=== PATIENT | male | born 1960 | race Caucasian/White ===

== ENCOUNTER 2022-12-01 09:51 | Outpatient (RCR) | payer OTHER, SELFPAY | END 2023-01-05 10:37 | disposition home or self-care (01) | PROVIDERS: PCP Family Medicine; Visit Provider Orthopaedic Surgery | DX: M17.12 Unilateral primary osteoarthritis, left knee (principal); Z96.652 Presence of left artificial knee joint; Z51.89 Encounter for other specified aftercare | CPT/HCPCS: 97110; 97161; 97530 ==

== ENCOUNTER 2023-01-17 08:05 | Day surgery (SDC) | payer OTHER, SELFPAY ==
[2023-01-17] VITALS (22 sets, daily range): BP systolic 136–178; BP diastolic 86–118; PULSE 53–81; RESP 14–18; TEMP 35.1–37.1; O2SAT 88–98; BMI 28.8
[2023-01-17] MEDS: CEFAZOLIN 2 GM INJ IVP (08:12)
[2023-01-17] MEDS: OXYCODONE (CR) 10 MG TAB.ER.12H PO (09:00)
[2023-01-17] MEDS: CELECOXIB 200 MG CAPSULE PO (09:00)
[2023-01-17] MEDS: ACETAMINOPHEN 500 MG TABLET 1000 MG PO ×3 (09:00→20:53)
[2023-01-17] MEDS: LACTATED RINGERS 1000 ML 1,000 ML 100 ML IV ×2 (09:05→13:22)
[2023-01-17] MEDS: SODIUM CHLORIDE 0.9 % (FLUSH) 10 ML SYRINGE IVF (09:05)
[2023-01-17] MEDS: fentaNYL 100 MCG/2 ML inj IVP (10:41)
[2023-01-17] MEDS: MIDAZOLAM HCL 1 MG/ML inj IVP (10:41)
--- NOTE | 2023-01-17 10:48 | W.PM.NB ---
Nerve Block Nerve Block Time Seen by Provider: 10:45 Date Seen: 01/17/23 Type of block requested by surgeon for post-operative analgesia: adductor canal Side: left Time out performed: Yes Verification of patient name: Yes Verification of date of : Yes Site marking: site marked Name of person performing procedure: Fredy Continuous monitoring Was continuous monitoring of O2 sat, B/P, youth nutritional monitor, recorded every 15 minutes?: Yes Procedure Checklist: sterile prep, needles and gloves Ultrasound guided. Images saved: Yes Medications given in 5ml increments after negative aspiration: Ropivicaine %: 0.5 mL: 20 Needle gauge: 20 Decadron (mg): 10 Precedex (mcg): 25 Patient tolerated procedure well: Yes Additional comments: Needle noted adjacent to nerve Block Charges Block Charge (with Pro Fee): Femoral Nerve Use of Ultrasound Machine for Block: Yes- US Guidance/pain block
--- NOTE | 2023-01-17 10:48 | W.PM.NB ---
Nerve Block Nerve Block Time Seen by Provider: 10:45 Date Seen: 01/17/23 Type of block requested by surgeon for post-operative analgesia: geniculars Side: left Time out performed: Yes Verification of patient name: Yes Verification of date of : Yes Site marking: site marked Name of person performing procedure: Fredy Continuous monitoring Was continuous monitoring of O2 sat, B/P, cardiac catheterization technologist, recorded every 15 minutes?: Yes Procedure Checklist: sterile prep, needles and gloves Medications given in 5ml increments after negative aspiration: Ropivicaine %: 0.5 mL: 9 Needle gauge: 25 Patient tolerated procedure well: Yes Block Charges Block Charge (with Pro Fee): Genicular Nerve Block Use of Ultrasound Machine for Block: No
--- NOTE | 2023-01-17 10:49 | W.ANESCHARGE ---
Anesthesia Charges Start Date/Time Anesthesia Start Date: 01/17/23 Anesthesia Start Time: 11:02 Stop Date/Time Anesthesia Stop Date: 01/17/23 Anesthesia Stop Time: 13:33
--- NOTE | 2023-01-17 10:52 | SUR.PREOP ---
TIME?OUT:?1041 PT/RN/MDA?VERIFICATION?OF?SURGICAL?SITE,?PROCEDURE,?AND?CONSENT OBTAINED?PRIOR?TO?INVASIVE?PROCEDURE.
[2023-01-17] MEDS: TRANEXAMIC ACID 100 MG/ML INJ 1000 MG IV (11:15)
--- NOTE | 2023-01-17 12:34 | CRLHL7_ITS ---
For Patients: As a result of the Cures Act, medical imaging exams and procedure reports are released immediately into your electronic medical record. You may view this report before your referring provider. If you have questions, please contact your health care provider. Indication: Post op left TKA Technique: Two views left knee Findings/Impression: Hardware from a left total knee arthroplasty is in satisfactory position. Bone alignment is normal. No sign of acute fracture. Postop changes are within normal limits. Dictated by Carlin Galeas MD @ 01/18/2023 12:34:09 PM (Electronically Signed)
--- NOTE | 2023-01-17 12:38 | PM.ORPRC ---
Procedure Note Date of procedure: 01/17/23 Procedure: PREOPERATIVE DIAGNOSIS: Left knee osteoarthritis POSTOPERATIVE DIAGNOSIS: Left knee osteoarthritis NAME OF OPERATION: Left total knee arthroplasty SURGEON: Marcial Lauren MD TRUCK DISPATCHER: Malu Ruiz PA-C ANESTHESIA: Spinal ESTIMATED BLOOD LOSS: 0 mL COMPLICATIONS: None SPECIMENS: None DRAINS: None PREOPERATIVE ANTIBIOTICS: Ancef 2 grams IMPLANTS: 1. J&J Attune # 9 posterior stabilized femur 2. # 9 fixed-bearing tibia 3. # 9 posterior stabilized, 5 mm fixed-bearing polyethylene 4. 41 patella INDICATIONS: The patient is a 62-year-old with a longstanding history of severe, unrelenting left knee pain secondary to end-stage (grade IV) left knee osteoarthritis. Despite appropriate nonoperative management, including activity modification, anti-inflammatories, [id number] pain medication, bracing, physical therapy, and injections they continue to have pain and disability. Operative intervention was offered. The risks, benefits and expected outcomes were discussed in detail. These included but were not limited to: Infection, bleeding, injury to blood vessel or nerve, venous thromboembolism. All questions were answered to their satisfaction. Use of an assistant spa manager was necessary throughout the case for patient positioning and safety, soft tissue retraction, and closure. PROCEDURE: Spinal anesthesia was administered. The patient was placed supine on the operating table. The assistant spa manager made sure the patient was positioned appropriately. The lower extremity was prepped and draped in the usual sterile fashion. The limb was exsanguinated with the Kd bandage. The pneumatic tourniquet was inflated to 300 mmHg. A standard anterior incision was made with the knee in flexion. Subcutaneous dissection was sharply taken through fascial layer #1. Full-thickness medial and lateral flaps were elevated. The assistant spa manager retracted the soft tissues and protected them throughout the case. A standard medial parapatellar approach was made. The patella was everted. The infrapatellar fat pad was preserved. The menisci and cruciate ligaments were sharply d?brided. Marginal osteophytes were d?brided with the rongeur. The drill was used to penetrate the femoral canal. The canal was aspirated and irrigated with pulse lavage. The intramedullary femoral guide was placed for a 5-degree valgus cut, removing 10 mm off the distal femur. The saw was used to make the cut. Whitesides line and the trans epicondylar axis were marked. The femoral sizing guide was pinned onto the distal femur. Three degrees of external rotation nicely parallels the transepicondylar axis. Pins were placed for posterior referencing. The four-in-one cutting guide was pinned onto the distal femur. The anterior, posterior, and chamfer cuts were made. The assistant spa manager protected the collateral ligaments. The box cutting guide was pinned. The box cuts were made. The boxed trial was placed and was an excellent fit. Drill holes for the lugs were made. Attention was then turned to the proximal tibia. The extramedullary tibial guide was placed for a neutral varus/valgus cut with 5 degrees of posterior slope, removing 2 mm based off the medial tibial surface. The assistant spa manager protected the collateral ligaments and the neurovascular bundle. The saw was used to make the cut. Trial components were placed. The knee was nicely balanced in both flexion and extension. The trial components were removed. The tray was placed in appropriate rotation, parallel to our tibial cutting pins. It was pinned by the assistant spa manager and the drill and the punch were used. The tray was removed. The punch was used again. We placed a bone plug in the femoral canal. Attention was then turned to the patella. [place] patellar thickness was 26 mm. The lobster claw resection guide was used with the 9.5 mm lakshmi. The saw was used to make the cut. Drill holes were made by the assistant spa manager. The trial was placed and was an excellent fit. Cancellous surfaces were irrigated with pulse lavage and thoroughly dried by the assistant spa manager. We cemented the tibial component, then the femoral component. We impacted the 5 mm polyethylene onto the tibial tray. The knee was brought into full extension. We then cemented the patellar component. Excessive cement was removed. The cement was allowed to harden. The knee was taken through a range of motion and was found to be nicely balanced in both flexion and extension. The patella tracks centrally. The assistant spa manager did a three minute dilute Betadine solution soak. The assistant spa manager irrigated the wound with 3 liters of normal saline via pulse lavage. The assistant spa manager reapproximated the extensor mechanism with #1 Vicryl in an interrupted [id number] fashion. The assistant spa manager then ran the extensor mechanism with a #1 PDO Stratafix. The assistant spa manager closed the subcutaneous tissues with a 3-0 Stratafix and the skin with a running 3-0 Stratafix in a subcuticular fashion. Glue was used to seal the skin. The assistant spa manager placed a dry dressing, HARITHA stocking, and Polar Care. Sponge and needle counts were correct x2. The patient tolerated the procedure well. There were no apparent complications. They were carefully transferred to the hospital bed and taken to the postanesthesia care unit in satisfactory condition. PLAN: The patient will be mobilized with physical therapy. Aspirin will be used for DVT prophylaxis. They will be discharged to home once medically appropriate.
--- NOTE | 2023-01-17 13:29 | W.ANESCHARGE ---
Anesthesia Charges Start Date/Time Anesthesia Start Date: 01/17/23 Anesthesia Start Time: 11:02 Stop Date/Time Anesthesia Stop Date: 01/17/23 Anesthesia Stop Time: 13:33
[2023-01-17] MEDS: fentaNYL 100 MCG/2 ML inj 50 MCG IVP ×2 (13:45→13:54)
--- NOTE | 2023-01-17 13:58 | SUR.PHASEI ---
pt states his knee hurts. rates 6/10 on pain scale. pt desats to 75 on 3 L oxygen via NC.
--- NOTE | 2023-01-17 14:02 | SUR.PHASEI ---
pt BP at his baseline, reviewed with jairo ROWE to discharge from PACU to transport to Med/Surg.
[2023-01-17] MEDS: HYDROmorphone 0.5 mg/0.5 ml inj IVP ×2 (14:45→23:36)
--- NOTE | 2023-01-17 15:21 | REH.PT ---
Pt not ready for therapy as nerve block is still in place. Will eval tomorrow.
[2023-01-17] MEDS: CEFAZOLIN 2 GM in 0.9 % SODIUM CHLORIDE Mini-bag 100 ML IVPB ×2 (15:48→22:27)
[2023-01-17] MEDS: OXYCODONE 5 MG TABLET PO ×3 (15:49→22:27)
[2023-01-17] MEDS: LACTATED RINGERS 1000 ML 1,000 ML 75 ML IV (15:50)
--- NOTE | 2023-01-17 16:39 | PM.IMCN1 ---
Date of Consult Patient: Chris Patient Consult date: 01/17/23 Requesting Physician: Orthopedics Primary Care Provider: Se Lehman MD Consult Narrative Reason for consult: Postop left total knee replacement, HTN, alcohol abuse Narrative: Timoteo Haywood is a 62 year old man who underwent a left total knee replacement today due to underlying severe, advanced left gonarthrosis. Surgery undertaken successfully without any complication. Estimated intraoperative blood loss 0 mL. Pain adequately managed at this time. Denies nausea vomiting. Tolerating oral consumption. Recently returned from the operating room. Has not resumed ambulating yet. Review of Systems Status of ROS: Reports: 10 or more systems reviewed and unremarkable except as noted in History and below Narrative: I reviewed the preoperative note. No mention is made of any concern for alcohol abuse. As I visit with patient, he readily informs me that he consumes a few drinks of hard liquor daily, more than he should. Denies withdrawal symptoms. He tells me he wants to quit. [facility] Medical History (Updated 01/17/23 @ 16:50 by Pantera Cuellar MD) Muscle spasms of lower extremity ?M62.838 - Other muscle spasm (ICD-10) Erectile dysfunction ?N52.9 - Male erectile dysfunction, unspecified (ICD-10) Alcohol use disorder ?F10.90 - Alcohol use, unspecified, uncomplicated (ICD-10) High cholesterol ?E78.00 - Pure hypercholesterolemia, unspecified (ICD-10) Hypertension ?I10 - Essential (primary) hypertension (ICD-10) Surgical History History of colonoscopy ?Z98.890 - Other specified postprocedural states (ICD-10) Family History Father Heart disease Uncle Colon cancer Brother Diabetes Heart disease High blood pressure Paternal Grandfather Depression Social History Narrative: . Lives with his . Retired since 2021. Thirty pack-year history of smoking, quit a number of years ago. Drinks ?a few drinks of alcohol daily, more than I should. Denies alcohol withdrawal symptoms. Full resuscitation. Designates his as power of procedures analyst for health should that be required. What is your current living situation?: I presently have a place to live Problems where you live: no known problems Problems where you live details: none In the past 12 months, utilities in danger of being shut off: no In the past 12 mos, have been you worried that your food would run out before you had money to buy more?: never true In the past 12 mos, the food you bought just didn't last and you didn't have money to buy more?: never true Smoking Status: Never smoker Do you use any of these nicotine containing products: None Second hand tobacco smoke exposure: No How often do you have a drink containing alcohol: 4 or more times a week Alcohol type: hard liquor How many standard drinks containing alcohol do you have on a typical day: 3 or 4 How often do you have six or more drinks on one occasion: Less than monthly AUDIT-C Alcohol total score: 6 Non-prescribed substance use: denies use Caffeine: No How often does anyone, including family, friends and others, physically hurt you: never How often does anyone, including family, friends and others, insult or talk down to you: never How often does anyone, including family, friends and others, threaten you with harm: never How often does anyone, including family, friends and others, scream or curse at you: never Meds Home Medications and Allergies Home Medications Medication Instructions Recorded Confirmed Type atorvastatin 40 mg tablet 40 mg PO 07/04/22 10/24/22 History lisinopril 20 mg tablet 20 mg PO 07/04/22 10/24/22 History Allergies Allergy/AdvReac Type Severity Reaction Status Date / Time No Known Drug Allergies Allergy Verified 01/17/23 08:40 Exam Narrative: Exam Narrative: Examined patient in his hospital room. Appears comfortable and in no acute distress. Vision and hearing are grossly normal. Alert, oriented to self, place, time, situation. Friendly, articulate, cooperative. As he tells me about his use of alcohol, he appears somewhat anxious. He is also resolute about stating his desire to quit so can spend more time with his family. No icterus or jaundice. No petechiae. Neck is supple. Midline trachea. Normal thyroid. No head and neck lymphadenopathy. Lungs are clear to auscultation without wheezing, rhonchi, rales. Chest wall excursions are full. No CVA tenderness. Heart tones with regular rhythm, normal S1-S2, without murmur, gallop, or rub. PMI not laterally displaced. Abdomen with active bowel sounds, soft, nontender. No organomegaly or masses. No rebound or guarding. No lower extremity edema. Capillary refill less than 3 seconds in upper and lower extremities. Still too early to test his ability to transfer or stand or walk. No obvious focal motor neurologic deficits. No tremor, asterixis, or ataxia. Const: Vital Signs, click to edit/add: Vital Signs - 24 hr 01/17/23 08:47 01/17/23 10:42 01/17/23 10:45 Temperature 98.8 F Pulse Rate 73 81 73 Respiratory Rate 16 16 16 Blood Pressure 157/106 H 154/94 H 142/86 H Blood Pressure [Ri ght Arm] Pulse Oximetry 94 96 93 Oxygen Delivery Me thod Nasal Cannula Nasal Cannula Oxygen Flow Rate 3 3 01/17/23 13:31 01/17/23 13:38 01/17/23 13:40 Temperature 97.6 F Pulse Rate 62 61 60 Respiratory Rate 16 16 16 Blood Pressure 136/94 H 143/93 H 149/106 H Blood Pressure [Ri ght Arm] Pulse Oximetry 93 93 94 Oxygen Delivery Me thod Nasal Cannula Nasal Cannula Nasal Cannula Oxygen Flow Rate 3 3 3 01/17/23 13:45 01/17/23 13:50 01/17/23 13:55 Temperature Pulse Rate 57 L 58 L 64 Respiratory Rate 16 16 14 Blood Pressure 149/102 H 160/111 H 158/104 H Blood Pressure [Ri ght Arm] Pulse Oximetry 95 95 95 Oxygen Delivery Me thod Nasal Cannula Nasal Cannula Nasal Cannula Oxygen Flow Rate 3 3 3 01/17/23 14:00 01/17/23 14:12 Temperature 97.2 F L 95.2 F L Pulse Rate 58 L 56 L Respiratory Rate 16 16 Blood Pressure 158/104 H Blood Pressure [Ri ght Arm] 144/112 H Pulse Oximetry 94 Oxygen Delivery Me thod Nasal Cannula Oxygen Flow Rate 3 Documenting provider has reviewed patient's vital signs: yes Assessment and Plan Assessment and plan (1) Osteoarthritis of left knee: Problem comment: End-stage, grade 4 medial compartment and patellofemoral compartment Status: Chronic (2) Status post left knee replacement: Status: Acute (3) Alcohol use disorder: Problem comment: 01/17/2023: Consumes a few drinks daily, more than I should. Intends to significantly curtail his alcohol consumption, motivated to maintain his health so he can be with his family. Status: Acute (4) Hypertension: Status: Acute (5) High cholesterol: Status: Acute Plan 1. Reviewed impression with patient and . 2. Answered their questions to their satisfaction. 3. Monitor closely for possible signs and symptoms of alcohol withdrawal. 4. Continue with his usual medications. 5. Agree with postoperative venous thromboembolism prophylaxis efforts. 6. Agree with perioperative antibiotic prophylaxis. 7. Will follow with Orthopedic surgery as long as patient is in the hospital and warrants. I have completed hospitalist portion of the patient's discharge orders. 8. Patient and are agreeable to above stated plans and recommendations.
[2023-01-17] MEDS: lisinopriL 20 MG TABLET PO (17:41)
--- NOTE | 2023-01-17 19:29 | PC.NURSE ---
PATIENT RETURNED FROM SURGERY WITH ELEVATED BP AND PAIN 5-6. PATIENT REPORTED HE DID NOT TAKE HIS AM DOSE OF LISINOPRIL. DILAUDID ADMINISTERED AND PAIN DID IMPROVE. O2 SATS DID DECREASE TO 84-87%RA WHEN ASLEEP AND O2 APPLIED AT 2L O2 PER NC. TOLERATING REGULAR DIET WITH NO C/O N/V AND ABLE TO TAKE OXYCODONE PO FOR PAIN. PAIN CURRENTLY 06/17. PATIENT UP WITH A2, WALKER AND GAIT BELT TO BATHROOM AND ABLE TO VOID. BLOOD PRESSURE REMAINED ELEVATED AND MD UPDATED. ONE TIME DOSE OF LISINOPRIL ADMINISTERED. CRYOCUFF TO KNEE.
[2023-01-17] MEDS: ASPIRIN 81 MG TABLET EC PO (20:19)
[2023-01-17] MEDS: SENNOSIDES 1 TAB TABLET 2 TAB PO (20:19)
[2023-01-18 00:07] VITALS: O2SAT 98
[2023-01-18 03:00] VITALS: BP 162/106; PULSE 75; RESP 16; TEMP 36.2; O2SAT 95
[2023-01-18] MEDS: ACETAMINOPHEN 500 MG TABLET 1000 MG PO ×2 (04:02→09:45)
[2023-01-18] MEDS: OXYCODONE 5 MG TABLET PO ×3 (04:02→09:45)
--- NOTE | 2023-01-18 05:32 | PC.NURSE ---
End of shift... A&Ox3, VS on RA, HTN since following LTK. MD is aware. PT rates pain at 6-8 with movement/ also stiffness. PRN OXY given 2x and IV Dilaudid 1x. Calls appropriately to go to BR. QING w/ walkerHERMINIA. Saline locked overnight. No N/V. Dressing is CDI, cyrocuff to L knee. The pt gets anxious intermittently regarding his surgery, I discussed that he is progressing as normal. Motivate to work with PT and OT this morning.
[2023-01-18 06:41] LABS: Basophils Percent Auto 0.1 % (0.0-3.0); Hemoglobin* 14.2 gm/dL (13.5-17.5); Immature Granulocytes Pct Auto 0.3 %; Lymphocytes Percent Auto 5.5 % (20-44); Mean Corpuscular HGB Conc 33 gm/dL (32-36); Mean Corpuscular Hemoglobin 32 pg (26-34); Mean Corpuscular Volume 97 fL (80-100); Monocytes Percent Auto 10.4 % (0.0-11.0); Neutrophils Percent Auto 83.7 % (42.0-72.0); Platelet Count* 215 K/uL (140-440); RDW Coefficient of Variation % 12.5 % (11.5-15.5); Red Blood Count 4.44 m/uL (4.30-5.90); White Blood Count* 11.24 K/uL (4.50-11.00)
[2023-01-18 06:43] LABS: Slide Review Reflex No
[2023-01-18 07:04] LABS: Potassium* 4.6 mmol/L (3.6-5.1); Sodium* 136 mmol/L (135-149)
[2023-01-18 07:05] LABS: Prothrombin Time 13.8 Seconds
[2023-01-18 07:07] LABS: Blood Urea Nitrogen* 12 mg/dL (7-30); Creatinine* 0.8 mg/dL (0.5-1.5); Est. Creatinine Clearance* 84.07; Estimated Glomerular Filt Rate 100 ml/min
[2023-01-18 07:39] VITALS: BP 167/104; PULSE 72; RESP 16; TEMP 36.8; O2SAT 94
[2023-01-18] MEDS: SENNOSIDES 1 TAB TABLET 2 TAB PO (09:10)
[2023-01-18] MEDS: lisinopriL 20 MG TABLET PO (09:11)
[2023-01-18] MEDS: ASPIRIN 81 MG TABLET EC PO (09:11)
--- NOTE | 2023-01-18 09:56 | PM.ORPN ---
Subjective Subjective Time Seen by Provider: 07:15 Date Seen: 01/18/23 Principal diagnosis: Status post left knee replacement Interval history: Te is comfortable this morning. His accompanies him this morning. He will be discharging to home today. He denies nausea or vomiting. He is having breakfast currently. Ortho Exam Narrative Exam Narrative: Alert and oriented x3. Patient is in no acute distress. Converses without labored breathing. Hearing is grossly intact. Ambulates with a walker. Examination of the left knee shows mild effusion. Mild soft tissue edema. Dressing is intact. No warmth or sign of infection. Able to straight leg raise. CMS is intact left lower extremity. Bilateral calves are soft and nontender. Const Vital Signs, click to edit/add: Vital Signs - 24 hr 01/17/23 10:42 01/17/23 10:45 01/17/23 13:31 Temperature 97.6 F Pulse Rate 81 73 62 Pulse Rate [Left Pulse Oximeter] Respiratory Rate 16 16 16 Blood Pressure 154/94 H 142/86 H 136/94 H Blood Pressure [Right Arm] Pulse Oximetry 96 93 93 Oxygen Delivery Method Nasal Cannula Nasal Cannula Nasal Cannula Oxygen Flow Rate 3 3 3 01/17/23 13:38 01/17/23 13:40 01/17/23 13:45 Temperature Pulse Rate 61 60 57 L Pulse Rate [Left Pulse Oximeter] Respiratory Rate 16 16 16 Blood Pressure 143/93 H 149/106 H 149/102 H Blood Pressure [Right Arm] Pulse Oximetry 93 94 95 Oxygen Delivery Method Nasal Cannula Nasal Cannula Nasal Cannula Oxygen Flow Rate 3 3 3 01/17/23 13:50 01/17/23 13:55 01/17/23 14:00 Temperature 97.2 F L Pulse Rate 58 L 64 58 L Pulse Rate [Left Pulse Oximeter] Respiratory Rate 16 14 16 Blood Pressure 160/111 H 158/104 H 158/104 H Blood Pressure [Right Arm] Pulse Oximetry 95 95 94 Oxygen Delivery Method Nasal Cannula Nasal Cannula Nasal Cannula Oxygen Flow Rate 3 3 3 01/17/23 14:12 01/17/23 14:30 01/17/23 14:45 Temperature 95.2 F L 96 F L 96.7 F L Pulse Rate 56 L Pulse Rate [Left Pulse Oximeter] 53 L 62 Respiratory Rate 16 16 16 Blood Pressure Blood Pressure [Right Arm] 144/112 H 152/105 H 159/101 H Pulse Oximetry 95 98 Oxygen Delivery Method Nasal Cannula Nasal Cannula Oxygen Flow Rate 2 2 01/17/23 15:00 01/17/23 15:00 01/17/23 15:15 Temperature 96.7 F L Pulse Rate Pulse Rate [Left Pulse Oximeter] 60 63 Respiratory Rate 16 16 Blood Pressure Blood Pressure [Right Arm] 145/100 H 156/116 H Pulse Oximetry 95 97 96 Oxygen Delivery Method Nasal Cannula Nasal Cannula Oxygen Flow Rate 2 2 01/17/23 15:30 01/17/23 16:00 01/17/23 16:30 Temperature 97 F L Pulse Rate Pulse Rate [Left Pulse Oximeter] 65 72 64 Respiratory Rate 16 16 16 Blood Pressure Blood Pressure [Right Arm] 156/110 H 173/118 H 165/118 H Pulse Oximetry 97 94 94 Oxygen Delivery Method Nasal Cannula Room Air Nasal Cannula Room Air Oxygen Flow Rate 2 01/17/23 17:30 01/17/23 18:30 01/17/23 20:21 Temperature 96.5 F L 97.3 F L Pulse Rate Pulse Rate [Left Pulse Oximeter] 68 74 74 Respiratory Rate 16 16 18 Blood Pressure Blood Pressure [Right Arm] 161/106 H 164/103 H 178/107 H Pulse Oximetry 94 94 Oxygen Delivery Method Room Air Room Air Room Air Oxygen Flow Rate 01/17/23 22:34 01/17/23 22:34 01/18/23 00:07 Temperature 97.1 F L Pulse Rate Pulse Rate [Left Pulse Oximeter] 73 Respiratory Rate 16 Blood Pressure Blood Pressure [Right Arm] 158/108 H Pulse Oximetry 93 94 98 Oxygen Delivery Method Room Air Oxygen Flow Rate 01/18/23 03:00 01/18/23 07:39 01/18/23 07:39 Temperature 97.1 F L 98.3 F Pulse Rate Pulse Rate [Left Pulse Oximeter] 75 72 Respiratory Rate 16 16 Blood Pressure Blood Pressure [Right Arm] 162/106 H 167/104 H Pulse Oximetry 95 94 94 Oxygen Delivery Method Room Air Room Air Oxygen Flow Rate 01/18/23 07:39 Temperature Pulse Rate Pulse Rate [Left Pulse Oximeter] 72 Respiratory Rate 16 Blood Pressure Blood Pressure [Right Arm] Pulse Oximetry Oxygen Delivery Method Oxygen Flow Rate Assessment and Plan Assessment and plan (1) Status post left knee replacement: Problem details: 01/17/2023 Status: Acute (2) Alcohol use disorder: Problem details: 01/17/2023: Consumes a few drinks daily, more than I should. Intends to significantly curtail his alcohol consumption, motivated to maintain his health so he can be with his family. Status: Acute (3) Hypertension: Status: Acute (4) High cholesterol: Status: Acute Plan Plan for discharge is today to home if they meet discharge criteria. DVT prophylaxis includes aspirin 81 mg twice daily x1 month, Vazquez stockings x1 month may remove for 1 hr per day, frequent ambulation Remove dressing in 1 week. Observe wound and phone Orthopedics with any questions or concerns Return to clinic in 1 week for a wound check Return to clinic in 6 weeks with surgeon Minimize narcotic use. Wean off and discontinue soon as possible. Activities as tolerated. No strenuous activity. Outpatient physical therapy as scheduled. Ice and elevate the operative extremity. No restriction on ice.
--- NOTE | 2023-01-18 10:43 | PC.NURSE ---
Discharge: Patient pleasant and cooperative. Patient vitally stable, lungs clear, BS WNL, IV removed, catheter intact. Patient rates pain at most 7/10, scheduled tylenol given and 10 mg of oxy given x2. Left knee dressing C/D/I. Patient urinating and tolerating regular diet. Patient 1 assist, walker, gb. Patient signed belongings sheet and discharge sheet. Patient had no further questions regarding discharge. Patient left the floor by wheelchair to home at 1040.
== END 2023-01-18 10:40 | disposition home or self-care (01) ==
LOC: OR 08:06 → MEDSURG 08:08
PROVIDERS: PCP Family Medicine; Visit Provider Orthopaedic Surgery
PROC: (CPT 27447; principal; 2023-01-17 10:30)
DX: M17.12 Unilateral primary osteoarthritis, left knee (principal); G89.18 Other acute postprocedural pain; I10 Essential (primary) hypertension; F10.10 Alcohol abuse, uncomplicated
CPT/HCPCS: 27447; 01402; 36415; 64447; 64454; 73560; 76942; 82565; 84132; 84295; 84520; 85025; 85610; 97110; 97116; 97161; 97165; A9270; C1776; J0330; J0690; J1100; J1170; J2250; J2405; J2704; J2795; J3010; J3490; J7120